=== PATIENT | male | born 1990 | race Caucasian/White ===

== ENCOUNTER 2019-12-14 00:08 | Inpatient (IN) | payer MEDICAID ==
[~2019-12-14] VITALS: Ht 175.3 cm; Wt 69.5 kg
[~2019-12-14 00:08] MED LIST: PAXI20TA; SERO400T3
[2019-12-14 00:33] VITALS: BP 104/63
[2019-12-14] MEDS ORDERED: MAALOX 30 ML SUSP *UDC PO PRN (03:00)
[2019-12-14] MEDS ORDERED: OLANZapine ORAL DISINTEGRATING TAB 5MG PO PRN (03:00)
[2019-12-14] MEDS ORDERED: MOM 30ML SUSPENSION UDC PO PRN (03:00)
[2019-12-14] MEDS ORDERED: ACETAMINOPHEN TAB 650MG DOSE (2X325MG) PO PRN (03:00)
[2019-12-14] MEDS ORDERED: traZODone 50 MG TAB PO PRN (03:00)
[2019-12-14] MEDS ORDERED: NICOTINE 21MG/24HR 1 EA TRANSDERMAL TD SCH (09:00)
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
--- NOTE | 2019-12-14 11:21 | MHDSPDOC ---
[facility] Discharge Summary Discharge Summary DATE OF ADMISSION: Dec 14, 2019 at 02:53 DATE OF DISCHARGE: 12/14/19 Please see h/p for clinical dx, clinical course and discussion Vital Signs/I&Os Vital Signs Date Time Temp Pulse Resp B/P (MAP) Pulse Ox O2 Delivery O2 Flow Rate FiO2 12/14/19 00:33 97.4 81 12 104/63 (77) 98 Room Air Medications Scheduled Nicotine (Nicotine Patch) 21 Mg Patch.td24, 1 PATCH TD DAILY for tobacco for 30 Days, #30 Allergies Coded Allergies: chlorpromazine (Verified Allergy, Unknown, 12/14/19) lithium (Verified Allergy, Unknown, 12/14/19) onion (Verified Allergy, Unknown, 12/14/19) JULIA GLOVER DO Dec 14, 2019 11:21
[2019-12-14] MEDS ORDERED: NICO21PAT TD (11:39)
== END 2019-12-14 12:30 | disposition home or self-care (01) | DRG 757 ==
LOC: M ED 00:08 → M ED INP 02:53 → M PSY 03:55
PROVIDERS: ADMIT Psychiatry & Neurology Addiction Medicine; ATTEND Psychiatry & Neurology Addiction Medicine
DX: F71 Moderate intellectual disabilities (principal); Z87.820 Personal history of traumatic brain injury; F60.3 Borderline personality disorder; F12.20 Cannabis dependence, uncomplicated; F17.200 Nicotine dependence, unspecified, uncomplicated; Z91.018 Allergy to other foods; Z88.8 Allergy status to other drugs, medicaments and biological substances